=== PATIENT | female | born 2000 | race Hispanic/Latino ===

== ENCOUNTER 2024-09-09 14:13 | Emergency (ER) | payer SELFPAY ==
[~2024-09-09] VITALS: Ht 157.5 cm; Wt 72.6 kg
--- NOTE | 2024-09-09 14:17 | ERN ---
ED Note History of Present Illness Stated Complaint: NAUSEA AND VOMITING Chief Complaint: Nausea,Vomiting,Diarrhea Time Seen by MD: 14:15 Dictation: PATIENT IS A 23-YEAR-OLD FEMALE COMING IN TODAY WITH NAUSEA VOMITING ONSET EARLY THIS MORNING AFTER BEING OUT LAST NIGHT DRINKING. SHE STATES SHE HAD QUITE A BIT TO DRINK HER IS WITH HER AND STATES THE THEY BOTH WERE DRINKING HEAVILY. NO FEVER NO CHILLS NO DIARRHEA NO ABDOMINAL PAIN. PATIENT STATES ALSO SHE MIGHT BE . NO PRIMARY CARE DOCTOR Home Meds Active Scripts Ondansetron (Ondansetron Odt) 4 Mg Tab.rapdis, 4 MG PO Q6HPRN PRN for nausea, #16 TAB 0 Refills Prov:CICI BINGHAM Leopoldo [employer] BUSINESS ADMINISTRATOR 09/09/24 Past Medical History Social History: ETOH RN Note Reviewed/Agreed w/PFSH: Yes Review of System Dictation CONSTITUTIONAL: NEGATIVE EXCEPT FOR HPI HEAD/FACE: NEGATIVE EXCEPT FOR HPI EENT: NEGATIVE EXCEPT FOR HPI RESPIRATORY: NEGATIVE EXCEPT FOR HPI GASTROINTESTINAL/ABDOMINAL: NEGATIVE EXCEPT FOR HPI NAUSEA VOMITING GENITOURINARY: NEGATIVE EXCEPT FOR HPI MUSCULOSKELETAL: NEGATIVE EXCEPT FOR HPI INTEGUMENTARY: NEGATIVE EXCEPT FOR HPI NEUROLOGICAL/PSYCH: NEGATIVE EXCEPT FOR HPI HEMATOLOGIC/LYMPHATIC: NEGATIVE EXCEPT FOR HPI ALL SYSTEMS NEGATIVE, EXCEPT NOTED ABOVE. 13 POINT REVIEW OF SYSTEMS ASSESSED AND ALL NEGATIVE EXCEPT FOR ABOVE. Initial Vital Sign VS Vital Signs Date Time Temp Pulse Resp B/P (MAP) Pulse Ox O2 Delivery O2 Flow Rate FiO2 09/09/24 14:14 98.8 78 20 115/65 98 Room Air 0 09/09/24 16:18 21 Physical Exam Dictation VITAL SIGNS REVIEWED GENERAL APPEARANCE: ALERT, ORIENTED X 3, NO ACUTE DISTRESS, WELL DEVELOPED, NOURISHED. HEAD AND FACE: NON-TRAUMATIC. EYES: PERRL, PINK CONJUNCTIVAS, EYELID NO TRAUMA, ANTERIOR CHAMBER WITH ARCUS SENILIS. EARS: PINNAS INTACT AND NO SIGNS OF TRAUMA OR ERYTHEMA EAR CANALS CLEAR AND NO DISCHARGE TM NO ERYTHEMA NOSE: NO DISCHARGE, NO BLEEDING. OROPHARYNX: MOUTH NORMAL, TONGUE PINK, PHARYNX CLEAR,NO ERYTHEMA, TONSILS NO EXUDATES, NO ABSCESSES NOTED, MUCOUS MEMBRANE MOIST NECK: SUPPLE, NON-TENDER, NO THYROMEGALY, NO MASSES, NO JVD, NO BRUITS BREAST:DEFERRED CHEST:NO TENDERNESS, NO CREPITUS, NO PARADOXICAL MOVEMENT, NO RETRACTIONS LUNGS:CLEAR, WELL-VENTILATED, SYMMETRIC, NO RALES, NO WHEEZING, NO RHONCHI, NO STRIDOR, GOOD BREATH SOUNDS BILATERALLY HEART: REGULAR RATE, REGULAR RHYTHM, NO MURMUR, NO GALLOPS VASCULAR: NO PERIPHERAL EDEMA, ABDOMEN: SOFT, POSITIVE BOWEL SOUNDS, NONDISTENDED, NO GUARDING, NONTENDER, NO REBOUND, NO MASSES NO HEPATOMEGALY, NO SPLENOMEGALY, NO ROMAN'S SIGN, NO HERNIAS. NO FOCAL TENDERNESS RECTAL: DEFERRED GENITAL: DEFERRED NEUROLOGICAL: NORMAL SPEECH, MOTOR FUNCTION INTACT, SENSORY FUNCTION INTACT BASELINE PER HER MUSCULOSKELETAL: NECK NONTENDER, FULL RANGE OF MOTION, BACK NONTENDER, FULL RANGE OF MOTION, EXTREMITIES: NONTENDER, FULL RANGE OF MOTION SKIN: COLOR PINK, DRY, NO TURGOR, NO RASH, NO LACERATIONS, NO ABRASIONS, NO CONTUSIONS. LYMPHATIC: DEFERRED Results (Laboratory/Radiology) Laboratory/Radiology Laboratory Tests Test 09/09/24 14:26 Serum Test, Qualitative NEGATIVE (NEGATIVE) Labs Reviewed?: Yes ED Course ED Course Orders Procedure Category Date Status Time Ondansetron Odt 4mg PHA 09/09/24 Complete Tab (Zofran 4mg Odt) 14:30 Testing, LAB 09/09/24 Complete Serum Hcg 14:15 Current Medications Medications (Trade) Dose Ordered Sig/Candice Route PRN Reason Start Time Stop Time Status Last Admin Dose Admin Ondansetron HCl (zoFRAN 4MG ODT) 4 mg ONCE ONCE SL 09/09/24 14:30 09/09/24 14:31 DC 09/09/24 14:52 Vital Signs Date Time Temp Pulse Resp B/P (MAP) Pulse Ox O2 Delivery O2 Flow Rate FiO2 09/09/24 16:18 98.1 78 18 116/84 98 Room Air* 0 21 09/09/24 14:14 98.8 78 20 115/65 98 Room Air 0 Fifteen 50, patient tolerating p.o. fluids now after Zofran. She is aware she is not , we will discharged home with Zofran told no alcohol until she sees her doctor in the next 2-3 days and increase your fluid intake. Medical Decision Making MDM Medical discharge making based on established seeing status and stopping nausea vomiting after alcohol abuse. Patient tolerating p.o. well no nausea vomiting after Zofran Discharged home to follow up with her primary care doctor in 1-2 days with Zofran and omeprazole. DX & DISP Disposition: Discharge Departure Impression: Primary Impression: Hangover effect Condition: Stable Scripts Ondansetron (Ondansetron Odt) 4 Mg Tab.rapdis 4 MG PO Q6HPRN PRN for nausea, #16 TAB 0 Refills Prov: CICI BINGHAM NP 09/09/24 Additional Instructions: Follow-up with primary care provider in 1 to 2 days. Take medications as directed here in the emergency room. Okay to continue home medications unless otherwise discussed during your visit in the emergency room today. Return to your nearest emergency room if symptoms worsen or if there is no improvement. Call 911 if you need immediate assistance. Take Tylenol or Motrin [id number] as needed and if no contraindications are present. Increase oral hydration. A wound culture or urine culture was ordered here in the emergency room department please follow-up with primary care provider and advise them to get repeat ports from our facility. If you had any Lester wrap/splints that were applied here, please do not remove them until you see your primary care or specialty. Clear liquid diet for the next12 hours, then advance diet slowly to regular. Avoid any alcohol, soda pops, ice tea, copy until cleared by your primary care doctor tomorrow. Time of Disposition: 15:51 I have reviewed the case, Diagnosis and Plan ATTESTATION BY PHYSICIAN I PERFORMED THE SUBSTANTIVE PORTION OF THE VISIT. I HAVE REVIEWED AND PERSONALLY MADE AND APPROVED THE MANAGEMENT PLAN THAT IS DOCUMENTED IN THE NOTE BY MYSELF FOR THE A PP. I ACKNOWLEDGED FOR RESPONSIBILITY FOR THE PATIENT'S MANAGEMENT PLAN. CICI BINGHAM NP Sep 09, 2024 14:17 AGATA ZENDEJAS MD Sep 09, 2024 17:30
[2024-09-09] MEDS: ondanSETRON ODT 4MG TAB SL ONE (14:52)
[2024-09-09] MEDS ORDERED: ONDA-243 PO (15:52)
[2024-09-09 16:18] VITALS: BP 116/84; PULSE 78; RESP 18; TEMP 98.1; O2SAT 98
== END 2024-09-09 16:19 | disposition home or self-care (01) ==
LOC: EDH 14:13
DX: F10.129 Alcohol abuse with intoxication, unspecified (principal); Y90.9 Presence of alcohol in blood, level not specified
CPT/HCPCS: 36415; 84703; 99283